=== PATIENT | female | born 1960 | race Two or more races ===

== ENCOUNTER → 2024-07-23 | Emergency (ER) | payer OTHER ==
[~2024-07-23] MED LIST: AVALIDE 300-121 EACH PO; METOPROLOL SUC200 MG PO; NEURONTIN600 M1 PO; RESTORIL15 M1; RESTORIL15 MG PO; TUSNEL LIQUID178 ML PO; XOPENEX CO1.25 MG/0. IH; ZITHROMAX500 MG PO
== END | disposition left against medical advice (07) ==
LOC: ER 13:19
DX: Z53.21 Procedure and treatment not carried out due to patient leaving prior to being seen by health care provider (principal)